=== PATIENT | male | born 1995 | race Two or more races ===

== ENCOUNTER 2019-10-12 18:46 | Emergency (ER) | payer SELFPAY ==
[~2019-10-12] VITALS: Ht 172.7 cm; Wt 74.8 kg
[2019-10-12 18:50] VITALS: BP 112/62
--- NOTE | 2019-10-12 18:53 | Emergency Room Report ---
History of Present Illness General Chief Complaint: Alcohol Intoxication Source: Patient Present Illness HPI Patient is a 24-year-old male brought in by EMS after increased altered mental status. Patient had recent increased difficulty with ambulation and was found laying on the street. He apparently had prior history of alcohol abuse. Reportedly he had been found several blocks from the hospital. He denies any current complaints. 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: No Patient History Past Medical History: see triage record Reviewed Nursing Documentation: PMH: Agreed; PSxH: Agreed Nursing Documentation-PMH Past Medical History Deferred: Pt Cognitively Impaired Past Medical History: Deferred Review of Systems All Other Systems: limited - Limited by mental status and poor historian Physical Exam Vital Signs Date Time Temp Pulse Resp B/P (MAP) Pulse Ox O2 Delivery O2 Flow Rate FiO2 10/12/19 18:40 99.0 94 20 112/62 (79) 99 Room Air Sp02 EP Interpretation: reviewed, normal General Appearance: normal inspection Head: atraumatic Eyes: bilateral eye other - 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 ENT: normal ENT inspection, hearing grossly normal, normal voice Neck: normal inspection, full range of motion, supple, no bony tend Respiratory: normal inspection, lungs clear, normal breath sounds, no respiratory distress, no retraction, no wheezing Cardiovascular #1: regular rate, rhythm, no edema Gastrointestinal: normal inspection, normal bowel sounds, non tender, soft, no guarding, no hernia Genitourinary: no CVA tenderness Musculoskeletal: normal inspection, back normal, normal range of motion Neurologic: alert, motor strength/tone normal, responsive, speech normal, normal inspection Psychiatric: normal inspection, judgement/insight normal, mood/affect normal Medical Decision Making Diagnostic Impression: Primary Impression: Alcohol abuse ER Course Patient presented for altered mental status. Differential diagnosis include was not limited to alcohol intoxication, substance abuse, electrolyte abnormality, seizure among others. Patient states that he does not want further treatment in the emergency department. At the time of discharge patient was ambulatory without assistance and capable of self-care. Patient was subsequently discharged home. He was advised to return if he changed his mind. Labs Test 10/12/19 18:55 Last Vital Signs Date Time Temp Pulse Resp B/P (MAP) Pulse Ox O2 Delivery O2 Flow Rate FiO2 10/12/19 18:40 99.0 94 20 112/62 (79) 99 Room Air Status: improved Disposition: HOME, SELF-CARE Condition: Stable Marlon Garcia MD Oct 12, 2019 18:53
[2019-10-12 19:16] LABS: ANION GAP 14 mmol/L (5-15); BLOOD UREA NITROGEN 8 mg/dL (7-18); CALCIUM 8.2 MG/DL (8.5-10.1); CARBON DIOXIDE 23 MMOL/L (21-32); CHLORIDE 105 MMOL/L (98-107); POTASSIUM 3.5 MMOL/L (3.5-5.1); SODIUM 142 MMOL/L (136-145)
[2019-10-12 19:18] LABS: BASOPHILS % (AUTO) 1.1 % (0.0-2.0); EOSINOPHILS % (AUTO) 1.1 % (0.0-3.0); HEMATOCRIT 42.6 % (42.0-52.0); HEMOGLOBIN 13.4 G/DL (14.2-18.0); LYMPHOCYTES % (AUTO) 34.6 % (20.0-45.0); MEAN CORPUSCULAR VOLUME 89 FL (80-99); MONOCYTES % (AUTO) 11.7 % (1.0-10.0); NEUTROPHILS % (AUTO) 51.6 % (45.0-75.0); PLATELET COUNT 293 K/UL (150-450); RED CELL DISTRIBUTION WIDTH 13.9 % (11.6-14.8)
[2019-10-12 19:20] LABS: ALANINE AMINOTRANSFERASE 38 U/L (12-78); ALBUMIN 4.1 G/DL (3.4-5.0); ALBUMIN/GLOBULIN RATIO 1.2 (1.0-2.7); ALKALINE PHOSPHATASE 107 U/L (46-116); ASPARTATE AMINO TRANSFERASE 21 U/L (15-37); BILIRUBIN,TOTAL 0.3 MG/DL (0.2-1.0)
== END 2019-10-12 19:30 | disposition home or self-care (01) ==
LOC: EDBD 18:46 → EMR 19:02
DX: F10.10 Alcohol abuse, uncomplicated (principal)
CPT/HCPCS: 36415; 80053; 82962; 85025; 99283; G0480